=== PATIENT | male | born 1995 | race Caucasian/White ===

== ENCOUNTER 2017-04-19 20:23 | Emergency (ER) | payer BC ==
[~2017-04-19] VITALS: Ht 182.8 cm; Wt 113.4 kg
[2017-04-19] MEDS ORDERED: TAMIFLU 75MG CA75 MG PO (21:32)
== END 2017-04-19 21:21 | disposition home or self-care (01) ==
LOC: ED 20:23
DX: B34.9 Viral infection, unspecified (principal)